=== PATIENT | female | born 2000 | race Caucasian/White ===

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

== ENCOUNTER 2022-08-08 10:23 | Day surgery (SDC) | payer OTHER ==
[~2022-08-08] VITALS: Ht 172.7 cm; Wt 86.2 kg
[~2022-08-08 10:23] MED LIST: CVS10CAP7 PO; ETON68IM SC; NS 1,000 ML IV ONE; ZYRT10TA12 PO
[2022-08-08] MEDS ORDERED: propofoL 200 MG/20 ML VIAL As Ordered ONE (11:54)
[2022-08-08] MEDS ORDERED: fentaNYL 100 MCG/2 ML INJECTION As Ordered ONE (11:54)
[2022-08-08 12:40] VITALS: BP 119/74
== END 2022-08-08 12:42 | disposition home or self-care (01) ==
LOC: M OPP 10:23
PROVIDERS: ATTEND Internal Medicine Gastroenterology
DX: K90.0 Celiac disease (principal); K22.89 Other specified disease of esophagus; K29.70 Gastritis, unspecified, without bleeding; F41.9 Anxiety disorder, unspecified; Z88.2 Allergy status to sulfonamides; Z91.018 Allergy to other foods; Z79.899 Other long term (current) drug therapy
CPT/HCPCS: 43239; 88305; J3010

== ENCOUNTER → 2023-03-02 | Outpatient (REF) | payer OTHER ==
[~2023-03-02] MED LIST changes: -NS 1,000 ML IV ONE
== END ==
LOC: M SFHCWAGY 17:21
PROVIDERS: ATTEND Nurse Practitioner Family
DX: Z12.4 Encounter for screening for malignant neoplasm of cervix (principal)
CPT/HCPCS: 87070; G0123

== ENCOUNTER 2023-03-22 10:07 | Observation (INO) | payer OTHER ==
[~2023-03-22] VITALS: Ht 172.7 cm; Wt 97.0 kg
[~2023-03-22 10:07] MED LIST changes: +ceFAZolin SOD 2 GM in IV 1 EA IV ONE
[2023-03-22] MEDS ORDERED: ONDANSETRON 4MG 2ML VIAL As Ordered ONE (10:49)
[2023-03-22] MEDS ORDERED: fentaNYL 100 MCG/2 ML INJECTION As Ordered ONE (10:49)
[2023-03-22] MEDS ORDERED: propofoL 200 MG/20 ML VIAL As Ordered ONE (10:49)
[2023-03-22] MEDS ORDERED: ACETAMINOPHEN 1000MG 100ML IV BAG As Ordered ONE (10:49)
[2023-03-22] MEDS ORDERED: MIDAZOLAM INJ 2MG/2ML VIAL As Ordered ONE (10:49)
[2023-03-22] MEDS ORDERED: LIDOCAINE 2% 100MG/5ML SDV (FOR ANES.) As Ordered ONE (10:49)
[2023-03-22] MEDS ORDERED: dexmedeTOMIDine (4MCG/ML)200MCG/50ML BTL (PRECEDEX) As Ordered ONE (10:53)
[2023-03-22] MEDS ORDERED: GENTAMICIN SULF 80MG/2ML VIAL As Ordered ONE (12:10)
[2023-03-22] MEDS ORDERED: ROCURONIUM BROMIDE 50MG/5ML VIAL As Ordered ONE ×2 (12:36→13:09)
[2023-03-22] MEDS ORDERED: ceFAZolin 2 GM/D5W 50 ML IV BAG As Ordered ONE (13:00)
[2023-03-22] MEDS ORDERED: HYDROmorphone HCL 2MG/ML 1ML VIAL As Ordered ONE (13:04)
[2023-03-22] MEDS ORDERED: SUGAMMADEX SODIUM 500 MG/5 ML VIAL (BRIDION) As Ordered ONE (13:05)
[2023-03-22] MEDS ORDERED: METOCLOPRAMIDE INJ 10MG/2ML VIAL As Ordered ONE (13:23)
[2023-03-22] MEDS ORDERED: ePHEDrine SULFATE 25 MG/5 ML(5MG/ML) SYRINGE As Ordered ONE (14:36)
[2023-03-22] MEDS ORDERED: PHENYLephrine 500MCG 5ML (100MCG/ML) SYRINGE As Ordered ONE (14:36)
[2023-03-22] MEDS ORDERED: HYDROMORPHONE HCL 0.5 MG/ 0.5 ML SYRINGE IV PRN (16:35)
[2023-03-22] MEDS ORDERED: LR 1,000 ML IV SCH (16:35)
[2023-03-22] MEDS ORDERED: oxyCODONE 5MG TAB PO PRN (16:35)
[2023-03-22] MEDS ORDERED: ONDANSETRON 4MG 2ML VIAL IV PRN ×2 (16:35→17:05)
[2023-03-22] MEDS ORDERED: fentaNYL 100 MCG/2 ML INJECTION IV PRN (16:35)
[2023-03-22] MEDS: LR 1,000 ML IV SCH ×2 (17:05→22:47)
[2023-03-22] MEDS ORDERED: traMADol 50 MG TAB PO PRN (17:05)
[2023-03-22] MEDS ORDERED: ACETAMINOPHEN TAB 650MG DOSE (2X325MG) PO PRN (17:05)
[2023-03-22 18:15] VITALS: BP 131/83; TEMP 97.9; O2SAT 97
[2023-03-22 18:45] VITALS: BP 130/79; TEMP 97.7; O2SAT 96
[2023-03-22] MEDS: oxyCODONE 5MG TAB PO PRN (19:37)
[2023-03-22 19:58] VITALS: BP 130/78; TEMP 97.9; O2SAT 97
[2023-03-22] MEDS: ceFAZolin SOD 1 GM in D5W MINI-BAG PLUS 50 ML IV SCH (20:32)
[2023-03-22 21:11] VITALS: BP 127/74; TEMP 97.9; O2SAT 96
[2023-03-22 22:07] VITALS: BP 127/74; TEMP 97.9; O2SAT 97
[2023-03-23] MEDS: oxyCODONE 5MG TAB PO PRN ×2 (02:49→10:24)
[2023-03-23 02:51] VITALS: BP 139/73; TEMP 97.9; O2SAT 96
[2023-03-23] MEDS: ceFAZolin SOD 1 GM in D5W MINI-BAG PLUS 50 ML IV SCH (05:08)
[2023-03-23 06:40] VITALS: BP 114/62; TEMP 97.2; O2SAT 96
[2023-03-23] MEDS ORDERED: OXYC1TAB23 PO (08:59)
== END 2023-03-23 12:52 | disposition home or self-care (01) ==
LOC: M SDC 10:07 → M RR INP 10:08 → M MS5PR 18:05
PROVIDERS: ADMIT Plastic Surgery Surgery of the Hand; ATTEND Plastic Surgery Surgery of the Hand
DX: N62 Hypertrophy of breast (principal); K90.0 Celiac disease; Z88.2 Allergy status to sulfonamides; G47.30 Sleep apnea, unspecified; Z79.899 Other long term (current) drug therapy
CPT/HCPCS: 19318; 81025; 88305; 96361; 96365; 96366; C9290; J0131; J0665; J0690; J1100; J1170; J1580; J2250; J2371; J2405; J2765; J3010

== ENCOUNTER → 2024-11-27 | Outpatient (REF) | payer OTHER ==
[~2024-11-27] MED LIST changes: +OXYC1TAB23 PO; -ceFAZolin SOD 2 GM in IV 1 EA IV ONE
[2024-11-29 13:01] LABS: HPV APTIMA Not Detected (Not Detected)
== END ==
LOC: M SFHCWAGY 18:06
PROVIDERS: ATTEND Advanced Practice Midwife
DX: Z12.4 Encounter for screening for malignant neoplasm of cervix (principal); R87.610 Atypical squamous cells of undetermined significance on cytologic smear of cervix (ASC-US)
CPT/HCPCS: 87624; G0123

== ENCOUNTER → 2025-04-20 | Outpatient (REF) | payer OTHER | LOC: M SFHCDERM 17:49 | PROVIDERS: ATTEND Nurse Practitioner Family | DX: D22.9 Melanocytic nevi, unspecified (principal) ==